=== PATIENT | female | born 1950 ===

== ENCOUNTER 2018-08-03 16:39 | Emergency (ER) | payer MEDICARE, OTHER ==
[2018-08-03 18:40] VITALS: BMI 17.9
[2018-08-03] MEDS ORDERED: Alum-Mag Hydrox-Simethicone Susp (30 mL) PO STA (19:42)
--- NOTE | 2018-08-03 20:00 | ED PDOC ---
Arrival/HPI - General Chief Complaint: Abdominal Pain Historian: Patient - History of Present Illness Narrative History of Present Illness (Text): 08/03/18 19:53 68 year old F w/ h/o constipation and Hypertension presenting to the Emergency Room for abdominal pain ongoing for the past week. The patient states she had progressive worsening of generalized abdominal pain most intense in the LLQ. She denies taking any medication for the pain and reports associated nausea, and subjective chills. She reports having a normal bowel movement this morning. The patient reports going to Dr. Oscar(PCP) who advised the patient to report to the emergency department for CT scan and labs. She denies chest pain, shortness of breath, dizziness, emesis, dysuria, hematuria, back pain, or paresthesias. PCP: Dr. Oscar *Patient's son served as a commercial specialist for the medical encounter* Time/Duration: 1 week Symptom Onset: Gradual Symptom Course: Unchanged Quality: Pressure Activities at Onset: Rest Context: Home Past Medical History - Provider Review Nursing Documentation Reviewed: Yes - Travel History Have you recently traveled outside [place] w/in the past 3 mons?: No - Infectious Disease Hx of Infectious Diseases: None - Tetanus Immunization Tetanus Immunization: Unknown - Past Medical History Past Medical History: No Previous - Cardiac Hx Cardiac Disorders: Yes - Pulmonary Hx Respiratory Disorders: No - Neurological Hx Neurological Disorder: No - HEENT Hx HEENT Disorder: No Hx Blind: No - Renal Hx Renal Disorder: No - Endocrine/Metabolic Hx Endocrine Disorders: No Hx Diabetes Mellitus Type 2: Yes (pre diabetic) - Hematological/Oncological Hx Blood Disorders: No - Integumentary Hx Dermatological Disorder: No - Musculoskeletal/Rheumatological Hx Musculoskeletal Disorders: No - Gastrointestinal Hx Gastrointestinal Disorders: No - Genitourinary/Gynecological Hx Genitourinary Disorders: No - Psychiatric Hx Psychophysiologic Disorder: No Hx Anxiety: No Hx Bipolar Disorder: No Hx Depression: No Hx Emotional Abuse: No Hx Hallucinations: No Hx Panic Disorder: No Hx Post Traumatic Stress Disorder: No Hx Psychosis: No Hx Physical Abuse: No Hx Schizophrenia: No Hx Sexual Abuse: No Hx Substance Use: No - Surgical History Other/Comment: left breast surgery - Anesthesia Hx Anesthesia: Yes Hx Anesthesia Reactions: No Hx Malignant Hyperthermia: No - Suicidal Assessment Feels Threatened In Home Enviroment: No Family/Social History - Physician Review Nursing Documentation Reviewed: Yes Family/Social History: Unknown Family HX Smoking Status: Never Smoked Hx Alcohol Use: No Hx Substance Use: No Hx Substance Use Treatment: No Allergies/Home Meds Allergies/Adverse Reactions: Allergies No Known Allergies Allergy (Verified 09/04/15 16:16) Review of Systems - Physician Review All systems were reviewed & negative as marked: Yes - Review of Systems Gastrointestinal: Abdominal Pain, Constipation, Nausea. absent: Stool Changes, Diarrhea, Vomiting, Appetite Changes Physical Exam Vital Signs Reviewed: Yes Vital Signs Pulse Resp BP Pulse Ox 08/03/18 18:39 66 18 118/69 97 Temperature: Afebrile Blood Pressure: Normal Pulse: Regular Respiratory Rate: Normal Appearance: Positive for: Well-Appearing, Non-Toxic, Comfortable Mental Status: Positive for: Alert and Oriented X 3 - Systems Exam Head: Present: Atraumatic, Normocephalic Pupils: Present: PERRL Extroacular Muscles: Present: EOMI Conjunctiva: Present: Normal Mouth: Present: Moist Mucous Membranes Neck: Present: Normal Range of Motion Respiratory/Chest: Present: Clear to Auscultation, Good Air Exchange. No: Respiratory Distress Cardiovascular: Present: Regular Rate and Rhythm, Normal S1, S2 Abdomen: Present: Tenderness (Generalized TTP with exquisite tenderness to LLQ), Distention, Normal Bowel Sounds. No: Rebound, Guarding Upper Extremity: Present: Normal Inspection. No: Cyanosis, Edema Lower Extremity: Present: Normal Inspection. No: Edema Neurological: Present: GCS=15, Speech Normal Skin: Present: Warm, Dry, Normal Color. No: Rashes Psychiatric: Present: Alert, Oriented x 3, Normal Insight, Normal Concentration Medical Decision Making ED Course and Treatment: 08/03/18 20:02 Impression 68 year old F w/ h/o constipation presenting to the Emergency room for 1 week h/o generalized abdominal pain Differential Diagnoses Includes But Is Not Limited To: --Colitis --SBO --Constipation Plan --Labs --Pepcid --Maalox -- --CT a/p --Reassess & disposition Progress Notes 08/03/18 21:57 Labs reviewed with no acute abnormalities. Patient reassessed and feels better. CT a/p read pending. Signout given to Dr. Hogan who will resume the patient's care. 08/03/18 22:13 CT a/p reveals diverticulitis and possible pericolonic abscess. Patient and son made aware of findings and lab work and desire to go home. PO antibiotics will b e given and scripts will be provided. - Lab Interpretations Lab Results: 08/03/18 20:00 08/03/18 20:00 Lab Results 08/03/18 20:00: Sodium 138, Chloride 103, Potassium 3.7, Carbon Dioxide 27, Anion Gap 12, BUN 17, Creatinine 0.7, Est GFR ( Amer) > 60, Est GFR (Non- Af Amer) > 60, Random Glucose 94, Calcium 9.0, Magnesium 2.3 H, Total Bilirubin 2.1 H, AST 23, ALT 18, Alkaline Phosphatase 83, Total Protein 7.7, Albumin 4.4, Globulin 3.3, Albumin/Globulin Ratio 1.3, Lipase 71 08/03/18 20:00: pO2 51, VBG pH 7.35, VBG pCO2 50.0, VBG HCO3 27.6, VBG Total CO2 29.1 H, VBG O2 Sat (Calc) 90.9 H, VBG Base Excess 1.2, VBG Potassium 3.7, Sodium 138.0, Chloride 105.0, Glucose 92, Lactate 0.9, FiO2 21.0, Venous Blood Potassium 3.7 08/03/18 20:00: Urine Color Yellow, Urine Appearance Sl cloudy, Urine pH 6.0, Ur Specific [place] >= 1.030, Urine Protein Negative, Urine Glucose (UA) Negative, Urine Ketones Negative, Urine Blood Trace-intact H, Urine Nitrate Negative, Urine Bilirubin Negative, Urine Urobilinogen 0.2, Ur Leukocyte Esterase Negative, Urine RBC 0 - 2, Urine WBC 0 - 2, Ur Epithelial Cells 4 - 5, Urine Bacteria Trace 08/03/18 20:00: PT 13.4 H, INR 1.21, APTT 37.5 08/03/18 20:00: WBC 6.9, RBC 4.14, Hgb 12.3, Hct 37.0, MCV 89.4, MCH 29.7, MCHC 33.2, RDW 13.8, Plt Count 225, MPV 10.1, Neut % (Auto) 55.1, Lymph % (Auto) 32.8, [place] % (Auto) 9.8 H, Eos % (Auto) 2.0, Baso % (Auto) 0.3, Lymph # (Auto) 2 .3, [place] # (Auto) 0.7 H, Eos # (Auto) 0.1, Baso # (Auto) 0.02, Absolute Neuts (auto) 3.81 I have reviewed the lab results: Yes - RAD Interpretation Narrative RAD Interpretations (Text): 08/03/18 22:10 CT Abdomen and Pelvis with IV contrast CLINICAL HISTORY: LLQ PAIN TECHNIQUE: Axial computed tomography images of the abdomen and pelvis with intravenous contrast. 249.62 mGy-cm CONTRAST: With; OMNIPAQUE 350 97 ML COMPARISON: None provided. FINDINGS: LUNG BASES: The lung bases appear clear. No pleural effusions are seen. BREASTS: Incidental discovery is made of a 1.4 x 1.7 cm mildly lobulated mass in the upper outer left breast. Correlation with left breast ultrasonography is recommended for further characterization. Correlation with mammographic studies is also recommended. LIVER: Unremarkable. GALLBLADDER AND BILE DUCTS: The gallbladder appears within normal limits. No radioopaque gallstones are seen. No biliary ductal dilatation is evident. PANCREAS: Unremarkable. SPLEEN: Unremarkable. ADRENAL GLANDS: Unremarkable. KIDNEYS, URETERS, AND BLADDER: The kidneys appear within normal limits. There is no hydronephrosis or hydroureter. No urinary calculi are seen. The urinary bladder is normal in size and configuration. STOMACH AND BOWEL: Mucosal wall thickening is seen in the fundus and upper body of the stomach suspicious for gastritis. No evidence of bowel obstruction. Additionally, mucosal wall thickening is seen throughout the small and large intestine thought compatible with diffuse enterocolitis. Diverticulosis coli is present within the descending and sigmoid colon with associated pericolonic inflammatory stranding consistent with acute diverticulitis. These findings are most pronounced at the junction between the lower descending-upper sigmoid colon. There is an apparent small 1.3 cm pericolonic abscess forming along the anteromedial mucosal wall within the lower descending-upper sigmoid colon. No definite microperforation is identified. APPENDIX: No evidence of acute appendicitis on CT examination. PERITONEUM: No free fluid. No free air. A small right inguinal hernia is present which contains minimal fluid and fat. SOFT TISSUES: Incidental note is made of multiple calcified injection granulomata within the left buttocks. LYMPH NODES: No lymphadenopathy is evident. REPRODUCTIVE: Unremarkable as visualized. VASCULATURE: No evidence of abdominal aortic aneurysm. BONES: No aggressive appearing osseous lesion. No acute osseous pathology evident. Bilateral pars defects are identified within L5 with no associated spondylol isthesis. IMPRESSION: 1. Acute diverticulitis in the left hemicolon as described above. 2. Findings suggestive of small pericolonic abscess formation as described above. This appears too small for percutaneous drainage. 3. Diffuse enterocolitis. 4. Incidental discovery of a left breast mass as described above. Further evaluation is suggested. 5. Small right inguinal hernia containing minimal fluid and fat. 6. 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 Radiology Orders: 08/03/18 19:42 ABD & PELVIS IV CONTRAST ONLY [CT] Stat CHEST PORTABLE [RAD] Stat Air Control/Anti Air Warfare Officer: Radiologist - Medication Orders Current Medication Orders: Discontinued Medications Al Hydrox/Mg Hydrox/Simethicone (Maalox Plus 30 Ml) 30 ml PO STAT STA Stop: 08/03/18 19:43 Famotidine (Pepcid) 20 mg IVP STAT STA Stop: 08/03/18 19:43 Disposition/Present on Arrival - Present on Arrival Any Indicators Present on Arrival: No History of DVT/PE: No History of Uncontrolled Diabetes: No Urinary Catheter: No History of Decub. Ulcer: No History Surgical Site Infection Following: None - Disposition Have Diagnosis and Disposition been Completed?: Yes Diagnosis: Diverticulitis Disposition: HOME/ ROUTINE Disposition Time: 22:16 Patient Plan: Discharge Condition: IMPROVED Discharge Instructions (ExitCare): Diverticulitis (DC) Print Language: YEMENI Additional Instructions: Please take medications as prescribed If symptoms persist (fevers, nausea, vomiting), return to the emergency room for reevaluation Please follow up with your PMD in 1 week Prescriptions: Ciprofloxacin HCl [Cipro] 500 mg PO BID 10 Days #20 tab Metronidazole [Flagyl] 500 mg PO DAILY 10 Days #10 tablet Referrals: Carol Oscar DO [[facility]] - Follow up with primary Forms: Peel (E[place]ian)
[2018-08-03 20:10] LABS: BASO # 0.02 K/mm3 (0.0-2.0); BASO % 0.3 % (0.0-3.0); EOS # 0.1 (0.0-0.7); HEMOGLOBIN 12.3 g/dL (12.0-16.0); LYMPH # 2.3 (1.2-3.4); LYMPH % 32.8 % (22.0-35.0); MEAN CELL VOLUME 89.4 fl (80.0-105.0); MEAN CORPUSCULAR HEMOGLOBIN 29.7 pg (25.0-35.0); MEAN CORPUSCULAR HGB CONC 33.2 g/dl (31.0-37.0); MEAN PLATELET VOLUME 10.1 fl (7.0-11.0); MONO # 0.7 (0.1-0.6); MONO % 9.8 % (1.0-6.0); RBC 4.14 10^6/uL (3.5-6.1); RED CELL DISTRIBUTION WIDTH 13.8 % (11.5-14.5); URINE BILIRUBIN NEGATIVE (NEGATIVE); URINE BLOOD TRACE-INTACT (NEGATIVE); URINE GLUCOSE (UA) NEGATIVE (NEGATIVE); URINE LEUKOCYTE ESTERASE NEGATIVE Leu/uL (NEGATIVE); URINE PROTEIN NEGATIVE mg/dL (<30 mg/dL); URINE UROBILINOGEN 0.2 E.U./dL (<1 E.U./dL); WHITE BLOOD COUNT 6.9 10^3/uL (4.5-11.0)
[2018-08-03 20:11] LABS: VENOUS BLOOD GAS BASE EXCESS 1.2 mmol/L (0.0-2.0); VENOUS BLOOD GAS PO2 51 mm/Hg (30-55); VENOUS BLOOD PH 7.35 (7.32-7.43)
[2018-08-03 20:19] LABS: INR 1.21; PARTIAL THROMBOPLASTIN TIME 37.5 Seconds (26.9-38.3); PROTHROMBIN TIME 13.4 SECONDS (9.4-12.5); URINE APPEARANCE SL CLOUDY (CLEAR); URINE COLOR YELLOW (YELLOW); URINE RBC 0 - 2 /hpf (0-2)
[2018-08-03 20:20] LABS: ALB/GLOB RATIO 1.3 (1.1-1.8); ALBUMIN 4.4 g/dL (3.0-4.8); ALT/SGPT 18 U/L (7-56); AST/SGOT 23 U/L (14-36); BLOOD UREA NITROGEN 17 mg/dL (7-21); GFR NON-AFRICAN AMERICAN > 60; LIPASE 71 U/L (23-300); URINE BACTERIA TRACE /hpf; URINE WBC 0 - 2 /hpf (0-6)
[2018-08-03] MEDS ORDERED: Iohexol 350 MG/100 ML VIAL ONE (20:39)
[2018-08-03 22:43] VITALS: BP 142/76; PULSE 98; RESP 20; TEMP 98.3; O2SAT 98
--- NOTE | 2018-08-04 08:10 | CT ---
Date of service: 08/03/2018 PROCEDURE: CT Abdomen and Pelvis with contrast HISTORY: abdominal pain w/ TTP LLQ COMPARISON: None. TECHNIQUE: Contrast dose: 97 cc of Omni 350 Radiation dose: Total exam DLP = 249.62 mGy-cm. This CT exam was performed using one or more of the following dose reduction techniques: Automated exposure control, adjustment of the mA and/or kV according to patient size, and/or use of iterative reconstruction technique. FINDINGS: LOWER THORAX: There is a 15 mm mass or nodule in the left breast. Mammographic follow-up is recommended LIVER: Unremarkable. No gross lesion or ductal dilatation. GALLBLADDER AND BILE DUCTS: Unremarkable. PANCREAS: Unremarkable. No gross lesion or ductal dilatation. SPLEEN: Unremarkable. ADRENALS: Unremarkable. No mass. KIDNEYS AND URETERS: Unremarkable. No hydronephrosis. No solid mass. VASCULATURE: Unremarkable. No aortic aneurysm. Mild aortic calcification BOWEL: There is acute diverticulitis at the junction of the descending and sigmoid colon. There is mural thickening and fatty inflammation. There is no evidence of free air. APPENDIX: Normal appendix. PERITONEUM: Unremarkable. No free fluid. No free air. There is a small fat containing inguinal hernia on the right. There is a small amount of fluid LYMPH NODES: Unremarkable. No enlarged lymph nodes. BLADDER: Unremarkable. REPRODUCTIVE: Unremarkable. BONES: Bilateral pars defect at L5 OTHER FINDINGS: The report concurs with the preliminary [facility] report IMPRESSION: Acute diverticulitis at the junction of the descending and sigmoid colon. 15 mm mass in the left breast. Mammographic follow-up recommended
--- NOTE | 2018-08-04 08:51 | RAD ---
Date of service: 08/03/2018 HISTORY: abdominal pain COMPARISON: No prior. FINDINGS: LUNGS: No active pulmonary disease. PLEURA: No significant pleural effusion identified, no pneumothorax apparent. CARDIOVASCULAR: No aortic atherosclerotic calcification present. Aortic tortuosity Normal cardiac size. No pulmonary vascular congestion. OSSEOUS STRUCTURES: No significant abnormalities. VISUALIZED UPPER ABDOMEN: Normal. OTHER FINDINGS: None. IMPRESSION: No active disease.
--- NOTE | 2018-08-04 12:19 | CARD ---
APPROVED REPORT Date of service: 08/03/2018 EKG Measurement Heart [id number] <Conclusion> Normal sinus rhythm Normal ECG
== END 2018-08-03 22:42 | disposition home or self-care (01) ==
LOC: ED 16:39
DX: K57.32 Diverticulitis of large intestine without perforation or abscess without bleeding (principal); R73.03 Prediabetes; I10 Essential (primary) hypertension
CPT/HCPCS: 71045; 74177; 80053; 81001; 82803; 83690; 83735; 85025; 85610; 85730; 93005; 96374; 99283; Q9967